=== PATIENT | female | born 1995 | race Caucasian/White ===

== ENCOUNTER 2017-08-20 14:13 | Emergency (ER) | payer OTHER ==
[~2017-08-20] VITALS: Ht 170.2 cm; Wt 108.9 kg
[2017-08-20] MEDS ORDERED: PRENATAL VITAM1 EACH PO (14:30)
== END 2017-08-20 17:55 | disposition home or self-care (01) ==
LOC: ED 14:13
DX: O20.0 Threatened abortion (principal); Z88.0 Allergy status to penicillin; Z79.899 Other long term (current) drug therapy; Z3A.09 9 weeks gestation of pregnancy
CPT/HCPCS: 36415; 76802; 76817; 80048; 84702; 85025; 86900; 86901; 99284

== ENCOUNTER 2017-08-21 13:13 | Emergency (ER) | payer OTHER ==
[~2017-08-21] VITALS: Ht 170.2 cm; Wt 108.4 kg
[~2017-08-21 13:13] MED LIST: PRENATAL VITAM1 EACH PO
== END 2017-08-21 16:42 | disposition home or self-care (01) ==
LOC: ED 13:13
DX: O03.9 Complete or unspecified spontaneous abortion without complication (principal); Z88.0 Allergy status to penicillin; Z79.899 Other long term (current) drug therapy
CPT/HCPCS: 76802; 76817; 76830; 76856; 80048; 84702; 85025; 88305; 99284; J7030

== ENCOUNTER 2018-08-11 06:22 | Emergency (ER) | payer OTHER ==
[~2018-08-11] VITALS: Ht 170.2 cm; Wt 108.9 kg
[~2018-08-11 06:22] MED LIST changes: +CEPHALEXIN500 MG PO; +NORCO 5-325 TA1 EACH PO; +TYLENOL325 M1 PO
== END 2018-08-11 06:45 | disposition home or self-care (01) ==
LOC: ED 06:22
DX: J02.9 Acute pharyngitis, unspecified (principal); Z88.0 Allergy status to penicillin
CPT/HCPCS: 87880; 99283

== ENCOUNTER 2020-04-26 04:30 | Inpatient (IN) | payer OTHER ==
[~2020-04-26] VITALS: Ht 170.2 cm; Wt 124.7 kg
--- NOTE | 2020-04-26 06:42 | PR ---
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 Will continue close observation. FETUS A: [id number] FHR Baseline: 140 Variability: Moderate 6-25bpm Accelerations: 15X15 Decelerations: None FHR Category: Category I Presentation: Vertex Comments on Fetus A: No evidence of metabolic acidosis FETUS B: [id number] Signing Physician: Bárbara Walker MD Copies: ~ *Electronically Signed* 04/26/20 0641 BÁRBARA WALKER MD PATIENT NAME: BUCKY STEPHENSONN JESSICA PROGRESS NOTE DATE OF : [birth year] PHYSICIAN: BÁRBARA WALKER MD RPT #: [id number] REPORT IS CONFIDENTIAL AND NOT TO BE RELEASED WITHOUT AUTHORIZATION
--- NOTE | 2020-04-26 07:59 | PR ---
[facility] [address] [place], [place] [address] Signed Progress Notes IP Datetime Report Generated by ROSCOE: 04/26/2020 07:59 PROGRESS NOTES: [id number] Impression: Normal Progression of Labor Procedures: Sterile Vag Exam Plan: Continue Present Management VITAL SIGNS: [id number] Vital Signs: Reviewed VS Notable Details: intermittent elevated BPs EXAM: [id number] Dilatation: 7.0 Effacement: 90 Station: -2 Contractions: q 2 to 3 min MEMBRANES: [id number] Comments: Comfortable after epidural. Her BPs were very high with her pain but are much better now. Will continue present care. FETUS A: [id number] FHR Baseline: 140 Variability: Moderate 6-25bpm Accelerations: 15X15 Decelerations: None FHR Category: Category I Presentation: Vertex Comments on Fetus A: No evidence of metabolic acidosis FETUS B: [id number] Signing Physician: Bárbara Walker MD Copies: ~ *Electronically Signed* 04/26/20 0759 BÁRBARA WALKER MD PATIENT NAME: PERRY STEPHENSON PROGRESS NOTE DATE OF : [birth year] PHYSICIAN: BÁRBARA WALKER MD RPT #: [id number] REPORT IS CONFIDENTIAL AND NOT TO BE RELEASED WITHOUT AUTHORIZATION
--- NOTE | 2020-04-27 08:41 | PR ---
[facility] [address] [facility] [place] [address] Signed PP Progress Notes Datetime Report Generated by CPN: 04/27/2020 08:40 SUBJECTIVE: [id number] Pain: Within Normal Limits Nausea/Vomiting: Denies Vital Signs: [id number] Vital Signs: Reviewed; Within Normal Limits Notable Details: PP Hgb/Hct = 10.3/31.8 EXAM: Ongoing Abdomen/Uterus: Normal Lochia: Normal Extremities: Normal IMPRESSION/PLAN/PROCEDURES: [id number] Impression: Normal Progression Plan: Discharge Procedures: None Progress Notes: Doing well, without complaint, ready to go home. Signing Physician: Tom Mcgee MD Copies: ~ *Electronically Signed* 04/27/20 0840 TOM MCGEE MD PATIENT NAME: PERRY STEPHENSON PROGRESS NOTE DATE OF : [birth year] PHYSICIAN: TOM MCGEE MD RPT #: [id number] REPORT IS CONFIDENTIAL AND NOT TO BE RELEASED WITHOUT AUTHORIZATION
== END 2020-04-27 14:08 | disposition home or self-care (01) | DRG 807 ==
LOC: FBCO 04:30 → FBC 05:05
PROVIDERS: ADMIT Obstetrics & Gynecology; ATTEND Obstetrics & Gynecology
PROC: 10E0XZZ Delivery of Products of Conception, External Approach (ICD-10-PCS; principal; 2020-04-26)
PROC: 0KQM0ZZ Repair Perineum Muscle, Open Approach (ICD-10-PCS; 2020-04-26)
PROC: 10907ZC Drainage of Amniotic Fluid, Therapeutic from Products of Conception, Via Natural or Artificial Opening (ICD-10-PCS; 2020-04-26)
PROC: 00HU33Z Insertion of Infusion Device into Spinal Canal, Percutaneous Approach (ICD-10-PCS; 2020-04-26)
PROC: 3E0R3BZ Introduction of Anesthetic Agent into Spinal Canal, Percutaneous Approach (ICD-10-PCS; 2020-04-26)
DX: O99.214 Obesity complicating childbirth (principal); Z37.0 Single live birth; Z3A.40 40 weeks gestation of pregnancy; E66.9 Obesity, unspecified; O66.0 Obstructed labor due to shoulder dystocia; O99.02 Anemia complicating childbirth; D64.9 Anemia, unspecified; O70.1 Second degree perineal laceration during delivery; Z88.0 Allergy status to penicillin
CPT/HCPCS: 01960; 36415; 85027; J1644; J2590; J2795; J3010; J7121

== ENCOUNTER 2021-03-19 21:14 | Emergency (ER) | payer OTHER ==
[~2021-03-19] VITALS: Ht 170.2 cm; Wt 117.9 kg
[2021-03-19] MEDS ORDERED: NORETHIN-ETH E1 EACH PO (21:32)
== END 2021-03-19 22:44 | disposition home or self-care (01) ==
LOC: ED 21:14
DX: R42 Dizziness and giddiness (principal); Z20.822 Contact with and (suspected) exposure to COVID-19; Z88.0 Allergy status to penicillin; Z79.899 Other long term (current) drug therapy
CPT/HCPCS: 71045; 99284-25

== ENCOUNTER 2021-10-18 18:36 | Emergency (ER) | payer OTHER ==
[~2021-10-18] VITALS: Ht 170.2 cm; Wt 98.9 kg
[~2021-10-18 18:36] MED LIST changes: +NORETHIN-ETH E1 EACH PO
--- OUTSIDE RECORDS SUMMARY | 2021-10-18 18:44 | XMS ---
PreManage Notification: PERRY STEPHENSON Security Flow Nurse Events No recent Security Events currently on file CRITERIA MET - [facility] [place] [facility] - 2 Visits in 30 Days CARE PROVIDERS There are no care providers on record at this time. Amy has no Care Guidelines for this patient. Janel VISIT COUNT (12 MO.) 1 [facility] ED 2 [facility] TOTAL 3 NOTE: Visits indicate total known visits. ED/UCC VISIT TRACKING (12 MO.) 10/18/2021 18:37 [facility] [place] TYPE: Emergency COMPLAINT: - DIFF BREATHING,CHEST TIGHTNESS 10/08/2021 17:12 [facility] TYPE: Emergency DIAGNOSES: - Mass - Localized swelling, mass and lump, unspecified - Lump on side 03/19/2021 21:15 [facility] [place] TYPE: Emergency COMPLAINT: - SHORTNESS OF BREATH DIAGNOSES: - Dyspnea, unspecified - COVID-19 - Dizziness and giddiness - COVID-19 - Other longterm (current) drug therapy - Allergy status to penicillin INPATIENT VISIT TRACKING (12 MO.) No inpatient visits to display in this time frame [email or web address]
[2021-10-18] MEDS ORDERED: PROVENTIL HFA6.7 GM INH (20:27)
--- NOTE | 2021-10-20 15:38 | EKG ---
[facility] [address] [facility] [place] [address] Signed Normal sinus rhythm with sinus arrhythmia Incomplete right bundle branch block Septal infarct , age undetermined Abnormal ECG No previous ECGs available Confirmed by CHEYANNE COLLINS MD ([id number]) on 10/20/2021 3:38:35 PM Electronically Signed By: CHEYANNE COLLINS MD 10/20/21 1538 PATIENT NAME: BUCKY STEPHENSONN JESSICA Electrocardiogram DATE OF : [birth year] PHYSICIAN: CHEYANNE COLLINS MD REPORT #: [id number] REPORT IS CONFIDENTIAL AND NOT TO BE RELEASED WITHOUT AUTHORIZATION
== END 2021-10-18 20:50 | disposition home or self-care (01) ==
LOC: ED 18:36
DX: R06.00 Dyspnea, unspecified (principal); Z88.0 Allergy status to penicillin; Z79.899 Other long term (current) drug therapy
CPT/HCPCS: 93005; 93010; 99284-25

== ENCOUNTER 2023-11-14 | Inpatient (IN) | payer BC ==
[~2023-11-14] VITALS: Ht 170.2 cm; Wt 117.5 kg
[~2023-11-14] MED LIST changes: +CALCIUM CARBONATE 500 MG CHEW PO PRN; +LACTATED RINGER'S 1,000 ML IV SCH; +MAGNESIUM HYDROXIDE/AL HYDROX 30 ML CUP PO PRN; +PROVENTIL HFA6.7 GM INH; +miSOPROStoL 25 MCG TAB PV SCH
[2023-11-14] MEDS ORDERED: LACTATED RINGER'S 1,000 ML IV PRN (00:15)
[2023-11-14] MEDS ORDERED: OXYTOCIN/DEXTROSE 5% 20 UNITS/100 ML BAG IV SCH (00:15)
[2023-11-14 00:42] LABS: HEMATOCRIT 32.5 % (35.0-50.0); HEMOGLOBIN 11.1 g/dL (12.0-18.0); MCH 30.2 (27-36); MCV 88.6 fl (81-99); RBC 3.67 M/ul (4.3-5.7); RDW 13.4 (10.5-15.0)
[2023-11-14 00:51] VITALS: BP 127/75
[2023-11-14 01:00] LABS: AMPHETAMINES, URINE NEGATIVE (NEGATIVE); BARBITURATES, URINE NEGATIVE (NEGATIVE); BENZODIAZEPINE, URINE NEGATIVE (NEGATIVE); BUPRENORPHINE, URINE NEGATIVE (NEGATIVE); CANNABINOID, URINE NEGATIVE (NEGATIVE); COCAINE, URINE NEGATIVE (NEGATIVE); ECSTASY, URINE NEGATIVE (NEGATIVE); FENTANYL, URINE NEGATIVE (NEGATIVE); METHADONE, URINE NEGATIVE (NEGATIVE); OPIATES, URINE NEGATIVE (NEGATIVE); OXYCODONE, URINE NEGATIVE (NEGATIVE); PHENCYCLIDINE, URINE NEGATIVE (NEGATIVE)
[2023-11-14 01:19] LABS: ABO O; ANTIBODY SCREEN NEGATIVE; RH POSITIVE
[2023-11-14] MEDS ORDERED: ROPIVACAINE 0.2% 200 ML BAG EPIDURAL SCH (07:15)
[2023-11-14] MEDS ORDERED: LACTATED RINGER'S 2,000 ML IV ONE (07:15)
[2023-11-14] MEDS ORDERED: ePHEDrine sulfate 5 MG/ML SYRINGE IV PRN (07:15)
[2023-11-14] MEDS ORDERED: LACTATED RINGER'S 500 ML IV PRN (07:15)
[2023-11-14] MEDS ORDERED: ROPIVACAINE 0.2% 200 ML BAG ONE (07:20)
--- NOTE | 2023-11-14 07:51 | PR ---
[facility] [address] [facility] [place], [place] [address] Signed Progress Notes IP Datetime Report Generated by CPSony: 11/14/2023 07:51 PROGRESS NOTES: [id number] Impression: Normal Progression of Labor Procedures: Artificial ROM; Sterile Vag Exam Plan: Continue Present Management VITAL SIGNS: [id number] Vital Signs: Reviewed; Within Normal Limits EXAM: [id number] Dilatation: 4.0 Effacement: 70 Station: -2 Contractions: not picking up well MEMBRANES: [id number] Comments: Comfortable after epidural. Will continue FETUS A: [id number] FHR Baseline: 130 Variability: Moderate 6-25bpm Accelerations: 15X15 Decelerations: None FHR Category: Category I Presentation: Vertex FETUS B: [id number] Signing Physician: Bárbara Walker MD Copies: ~ *Electronically Signed* 11/14/23 0751 BÁRBARA WALKER MD PATIENT NAME: PERRY STEPHENSON PROGRESS NOTE DATE OF : [birth year] PHYSICIAN: BÁRBARA WALKER MD RPT #: [id number] REPORT IS CONFIDENTIAL AND NOT TO BE RELEASED WITHOUT AUTHORIZATION
[2023-11-14] MEDS ORDERED: TRANEXAMIC ACID IN NACL,ISO-OS 0 ML IV ONE (13:40)
[2023-11-14] MEDS ORDERED: ACETAMINOPHEN 325 MG TAB PO PRN (14:00)
[2023-11-14] MEDS ORDERED: WITCH HAZEL/GLYCERIN 1 EA PAD TOP PRN (14:00)
[2023-11-14] MEDS ORDERED: BENZOCAINE 60 ML AEROSOL TOP PRN (14:00)
[2023-11-14] MEDS ORDERED: METHYLERGONOVINE MALEATE 0.2 MG/ML AMP IM ONE (14:00)
[2023-11-14] MEDS ORDERED: OXYTOCIN/0.9 % SODIUM CHLORIDE 500 ML IV SCH (14:00)
[2023-11-14] MEDS ORDERED: HYDROCORTISONE ACETATE 25 MG SUPP PR PRN (14:00)
[2023-11-14] MEDS ORDERED: HYDROCODONE/ACETA 5/325 TAB PO PRN (14:00)
[2023-11-14] MEDS ORDERED: MAGNESIUM HYDROXIDE 30 ML UDC PO PRN (14:00)
[2023-11-14] MEDS ORDERED: LIDOCAINE 2% VISCOUS 6 ML SYR TOP ONE ×2 (14:00)
[2023-11-14] MEDS ORDERED: OXYTOCIN 30 UNITS in LACTATED RINGER'S 1,000 ML IV SCH (14:00)
[2023-11-14] MEDS ORDERED: MAGNESIUM HYDROXIDE/AL HYDROX 30 ML CUP PO PRN (14:00)
[2023-11-14] MEDS ORDERED: CALCIUM CARBONATE 500 MG CHEW PO PRN (14:00)
[2023-11-14] MEDS ORDERED: IBUPROFEN 600 MG TAB PO PRN (14:00)
[2023-11-14] MEDS ORDERED: MEASLES,MUMPS&RUBELLA VACCINE 1 VIAL VIAL SUB-Q SCH (14:00)
[2023-11-14] MEDS ORDERED: SENNOSIDES/DOCUSATE 1 EA TAB PO SCH (21:00)
[2023-11-15 06:26] LABS: HEMATOCRIT 34.4 % (35.0-50.0); HEMOGLOBIN 11.2 g/dL (12.0-18.0); MCH 29.4 (27-36); MCHC 32.6 g/dl (30-36); MCV 90.3 fl (81-99); RBC 3.81 M/ul (4.3-5.7); RDW 13.9 (10.5-15.0)
--- NOTE | 2023-11-15 11:07 | PR ---
[facility] [address] [facility] [place] [address] Signed PP Progress Notes Datetime Report Generated by CPSony: 11/15/2023 11:08 SUBJECTIVE: [id number] Pain: Within Normal Limits Vital Signs: [id number] Vital Signs: Reviewed; Within Normal Limits Cardiovascular: Not Done Respiratory: Not Done Abdomen/Uterus: Abnormal Lochia: Normal Vulva/Perineum: Not Done Breasts: Not Done CVA Tenderness: Not Done Extremities: Normal Incision: Not Applicable Progress: Normal Exam Comments: Fundus firm, NT @ U-1. H/H 11.2/34.4, WBC 12.2, plat 168k IMPRESSION/PLAN/PROCEDURES: [id number] Impression: Normal Progression Plan: Discharge Procedures: Rubella Progress Notes: Doing well. She desires discharge. Signing Physician: Bárabra Walker MD Copies: ~ *Electronically Signed* 11/15/23 1108 BÁRBARA WALKER MD PATIENT NAME: PERRY STEPHENSON PROGRESS NOTE DATE OF : [birth year] PHYSICIAN: BÁRBARA WALKER MD RPT #: [id number] REPORT IS CONFIDENTIAL AND NOT TO BE RELEASED WITHOUT AUTHORIZATION
== END 2023-11-15 14:35 | disposition home or self-care (01) | DRG 807 ==
LOC: FBC
PROVIDERS: ADMIT Obstetrics & Gynecology; ATTEND Obstetrics & Gynecology
PROC: 10E0XZZ Delivery of Products of Conception, External Approach (ICD-10-PCS; principal; 2023-11-14)
PROC: 10907ZC Drainage of Amniotic Fluid, Therapeutic from Products of Conception, Via Natural or Artificial Opening (ICD-10-PCS; 2023-11-14)
PROC: 3E0R3BZ Introduction of Anesthetic Agent into Spinal Canal, Percutaneous Approach (ICD-10-PCS; 2023-11-14)
PROC: 00HU33Z Insertion of Infusion Device into Spinal Canal, Percutaneous Approach (ICD-10-PCS; 2023-11-14)
DX: O69.81X0 Labor and delivery complicated by cord around neck, without compression, not applicable or unspecified (principal); Z37.0 Single live birth; Z3A.39 39 weeks gestation of pregnancy; O62.2 Other uterine inertia
CPT/HCPCS: 01960; 36415; 80307; 85027; 86850; 86900; 86901; 90707; A9270; J2210; J7121